=== PATIENT | female | born 1965 | race Two or more races ===

== ENCOUNTER 2018-06-02 21:12 | Emergency (ER) | payer BC ==
[~2018-06-02] VITALS: Ht 160 cm; Wt 95.3 kg
[~2018-06-02 21:12] MED LIST: ARIP30TA3 PO; LAMO200T PO; LEVO150T8 PO; LITH600C PO; PROP60CA2 PO; TOPI100T38 PO; TRIH2TAB3 PO
[2018-06-02] MEDS ORDERED: KETOROLAC TROMETHAMINE INJ 30 MG/ML VIAL IV ONE (22:30)
[2018-06-02] MEDS ORDERED: ONDANSETRON HCL/PF 4 MG/2 ML VIAL IVP ONE (22:30)
[2018-06-02] MEDS: METOCLOPRAMIDE HCL 10 MG/2 ML VIAL IV ONE (22:30)
[2018-06-02] MEDS ORDERED: IV NS 0.9% 1,000 ML BAG IV ONE (22:30)
--- NOTE | 2018-06-02 22:30 | NUR ---
Pt BIBSELF FROM HOME C/O NONRADIATING EPIGASTRIC PAIN FOR THE PAST 2HRS. WENT TO URGENT CARE, BUT WAS TOLD TO COME TO ER INSTEAD. Pt IS C/O NAUSEA & VOMITTING AT HOME, BUT DENIES HAVING DIARRHEA. C/O BEING LIGHTHEADED AND DIZZY, DENIES -CP & -SOB. Pt ALREADY SEEN BY MD AT BEDSIDE. WILL CARRY OUT MD ORDERS.
[2018-06-02 22:47] LABS: BASOPHILS % (AUTO) 0.3 % (0.0-2.0); EOSINOPHILS % (AUTO) 2.1 % (0.0-6.0); HEMATOCRIT 43 % (33-45); HEMOGLOBIN 14.2 g/dL (11.5-14.8); LYMPHOCYTES # (AUTO) 2.5 /CMM (0.8-4.8); LYMPHOCYTES % (AUTO) 19.7 % (20.0-44.0); MEAN CORPUSCULAR HGB CONC 34 g/dl (31.0-36.0); MEAN CORPUSCULAR VOLUME 84 fL (82-100); MONOCYTES # (AUTO) 0.8 /CMM (0.1-1.30); NEUTROPHILS # (AUTO) 9.1 /CMM (1.8-8.9); NEUTROPHILS % (AUTO) 71.9 % (43.0-81.0); PLATELET COUNT (AUTO) 291 /CMM (150-450); RED BLOOD CELL COUNT(AUTO) 5.05 MIL/uL (4.0-5.2); WHITE BLOOD COUNT (AUTO) 12.7 K/uL (4.3-11.0)
[2018-06-02] MEDS ORDERED: KETOROLAC TROMETHAMINE 15 MG/ML VIAL ONE (22:51)
[2018-06-02] MEDS ORDERED: ONDANSETRON HCL/PF 4 MG/2 ML VIAL ONE (22:51)
[2018-06-02] MEDS ORDERED: METOCLOPRAMIDE HCL 10 MG/2 ML VIAL ONE (22:51)
[2018-06-02 22:56] LABS: CALCIUM, SERUM 9.6 mg/dL (8.5-10.1)
--- NOTE | 2018-06-02 22:59 | NUR ---
XR BEING DONE AT BEDSIDE
--- NOTE | 2018-06-02 23:00 | NUR ---
IV ACCESS STARTED ON LHAND #20G
--- NOTE | 2018-06-02 23:06 | NUR ---
ZOFRAN 4MG GIVEN IVP ON LHAND #20G
--- NOTE | 2018-06-02 23:07 | NUR ---
Pt BEING TAKEN FOR CT SCAN VIA WHEELCHAIR
--- NOTE | 2018-06-02 23:08 | NUR ---
PER Pt REQUEST WANTS THE PAIN MED AFTER SHE RETURNS FROM HER CT SCAN. WILL ADMINISTER ONCE SHE RETURNS TO THE ROOM.
[2018-06-02 23:11] LABS: BILIRUBIN,DIRECT 0.1 mg/dL (0.0-0.2); BILIRUBIN,TOTAL 0.5 mg/dL (0.2-1.0); TOTAL PROTEIN, SERUM 7.4 g/dL (6.4-8.2)
--- NOTE | 2018-06-02 23:45 | NUR ---
Pt refused reglan. said the zofran is working fine right now.
--- NOTE | 2018-06-02 23:45 | NUR ---
urine collected. sent with lab.
[2018-06-02 23:46] LABS: APPEARANCE,URINE CLEAR (CLEAR); BILIRUBIN,URINE NEGATIVE (NEGATIVE); BLOOD, URINE TRACE Ery/uL (NEGATIVE); COLOR,URINE YELLOW (YELLOW); KETONES,URINE NEGATIVE (NEGATIVE); LEUKOCYTE ESTERASE ,URINE TRACE (NEGATIVE); NITRITE, URINE NEGATIVE (NEGATIVE); PROTEIN,URINE NEGATIVE (NEGATIVE); UGLUCOSE NEGATIVE (NEGATIVE); UROBILINOGEN,URINE 0.2 EU/dL (0.2)
--- NOTE | 2018-06-02 23:46 | NUR ---
pt is requesting to hold off on taking toradol at this time, but said if her pain comes back she will notify us, and will agree to take the toradol then.
[2018-06-02 23:51] LABS: BACTERIA,URINE None seen /HPF (None Seen); SQUAMOUS EPITHELIAL CELL,UR Few /HPF (None Seen); WBC,URINE 0-2 /HPF (0-3)
--- NOTE | 2018-06-03 00:11 | NUR ---
pt is now c/o acid reflux accompanied with epigastric pain again. pt is requesting for the toradol now. undid reglan and was able to administer to pt. Reglan 10mg and Toradol 15mg administered on L hand IVP.
--- NOTE | 2018-06-03 00:52 | NUR ---
provided excuse from work for pt until 06/05/18
--- NOTE | 2018-06-03 01:14 | NUR ---
Patient discharged to home in stable condition. Written and verbal after care instructions given. Patient verbalizes understanding of instruction. Pt left facility on foot with steady gait. No s/s of acute distress or sob noted. VS stable. Pt's friend at bedside will be driving pt back home. IV access on Lhand removed, secured with gauze and tape. No signs of bleeding noted.
[2018-06-03 01:16] VITALS: BP 112/60
== END 2018-06-03 01:17 | disposition home or self-care (01) ==
LOC: ER 21:12
DX: R10.13 Epigastric pain (principal); R11.2 Nausea with vomiting, unspecified; E03.9 Hypothyroidism, unspecified; F31.9 Bipolar disorder, unspecified; E66.9 Obesity, unspecified; R00.1 Bradycardia, unspecified
CPT/HCPCS: 36415; 71045; 74176; 80048; 80076; 81001; 83690; 84443; 85025; 85730; 93005; 96361; 96374; 96375; 99284; A4606; J1885; J2405; J2765; J7030; Z7610; 81000-TC

== ENCOUNTER 2019-06-09 14:53 | Emergency (ER) | payer BC, OTHER ==
[~2019-06-09] VITALS: Ht 160 cm; Wt 122.5 kg
[~2019-06-09 14:53] MED LIST changes: -LAMO200T PO; +LAMO200T10 PO
[2019-06-09 15:06] VITALS: BP 126/69
--- NOTE | 2019-06-09 16:20 | NUR ---
PT LEFT W/OUT BEING SEEN BY ERMD.
== END 2019-06-09 16:21 | disposition left against medical advice (07) ==
LOC: ER 15:00
DX: Z53.21 Procedure and treatment not carried out due to patient leaving prior to being seen by health care provider (principal); R10.2 Pelvic and perineal pain; F31.9 Bipolar disorder, unspecified

== ENCOUNTER 2019-10-03 08:52 | Inpatient (IN) | payer OTHER ==
[~2019-10-03] VITALS: Ht 160 cm; Wt 99.8 kg
--- NOTE | 2019-10-03 08:58 | NUR ---
bibra88, from home, sent by psych MD for eval, per emt patient "randomly texting her psych MD, not making sense", off psych meds for few days, patient states "i'm confused with everything that is happening roght now". to er bed 10, hooked to monitor, changed to hosp gown, warm blanket provided, awaiting md landin.
[2019-10-03 09:35] LABS: BASOPHILS # (AUTO) 0.1 /CMM (0.0-0.2); BASOPHILS % (AUTO) 0.7 % (0.0-2.0); EOSINOPHILS % (AUTO) 1.5 % (0.0-6.0); HEMATOCRIT 47 % (33-45); HEMOGLOBIN 15.9 g/dL (11.5-14.8); LYMPHOCYTES # (AUTO) 2.2 /CMM (0.8-4.8); LYMPHOCYTES % (AUTO) 21.7 % (20.0-44.0); MEAN CORPUSCULAR HGB CONC 34 g/dl (31.0-36.0); MEAN CORPUSCULAR VOLUME 84 fL (82-100); MONOCYTES # (AUTO) 0.6 /CMM (0.1-1.30); MONOCYTES % (AUTO) 5.9 % (2.0-12.0); NEUTROPHILS # (AUTO) 7.2 /CMM (1.8-8.9); NEUTROPHILS % (AUTO) 70.2 % (43.0-81.0); PLATELET COUNT (AUTO) 284 /CMM (150-450); RED BLOOD CELL COUNT(AUTO) 5.63 MIL/uL (4.0-5.2); WHITE BLOOD COUNT (AUTO) 10.2 K/uL (4.3-11.0)
[2019-10-03 09:36] LABS: APPEARANCE,URINE Slightly Cloudy (CLEAR); BILIRUBIN,URINE Negative (NEGATIVE); BLOOD, URINE Negative Ery/uL (NEGATIVE); COLOR,URINE Yellow (YELLOW); KETONES,URINE Negative (NEGATIVE); LEUKOCYTE ESTERASE ,URINE Small (NEGATIVE); NITRITE, URINE Negative (NEGATIVE); PH,URINE 5.5 (5.0-8.0); PROTEIN,URINE Negative (NEGATIVE); UGLUCOSE Negative (NEGATIVE); UROBILINOGEN,URINE 0.2 EU/dL (0.2)
[2019-10-03 09:45] LABS: CALCIUM, SERUM 9.4 mg/dL (8.5-10.1); CARBON DIOXIDE 27 mmol/L (21-32); CHLORIDE 104 mmol/L (98-107); GLUCOSE 133 mg/dL (74-106); POTASSIUM 3.5 mmol/L (3.5-5.1); SODIUM SERUM 141 mmol/L (136-145); UREA NITROGEN, BLOOD 13 mg/dL (7-18)
[2019-10-03 09:46] LABS: BACTERIA,URINE Moderate /HPF (None Seen); RBC,URINE 0-2 /HPF (0-2); SQUAMOUS EPITHELIAL CELL,UR Moderate /HPF (None Seen)
[2019-10-03 09:58] LABS: ALANINE AMINOTRANSFERASE 50 U/L (12-78); ALBUMIN 4.3 g/dL (3.4-5.0); ALKALINE PHOSPHATASE 109 U/L (46-116); ASPARTATE AMINOTRANSFERASE 27 U/L (15-37); BILIRUBIN,DIRECT 0.3 mg/dL (0.0-0.2); BILIRUBIN,TOTAL 1.3 mg/dL (0.2-1.0); TOTAL PROTEIN, SERUM 8.1 g/dL (6.4-8.2)
[2019-10-03 09:59] LABS: ACETAMINOPHEN < 2 ug/ml (10-30); ALCOHOL, BLOOD < 3 mg/dL (0-0); SALICYLATE < 0.2 mg/dL (2.8-20.0)
[2019-10-03] MEDS ORDERED: LEVO125T8 PO (10:02)
[2019-10-03] MEDS ORDERED: VITA1TAB56 PO (10:02)
[2019-10-03] MEDS ORDERED: LACT1CAP71 PO (10:02)
[2019-10-03] MEDS ORDERED: CITA20TA16 PO (10:02)
[2019-10-03] MEDS ORDERED: CEPHALEXIN MONOHYDRATE 500 MG CAPSULE PO ONE ×2 (10:37→11:00)
--- NOTE | 2019-10-03 10:38 | NUR ---
PATIENT MEDICALLY CLEARED PER MD, WILL CONTACT CABINET ABRASIVE SANDBLASTER FOR EVAL
--- NOTE | 2019-10-03 10:40 | NUR ---
CALLED [facility] FOR PSYCH EVAL. ART WILL BE HERE WITHIN THE HOUR.
--- NOTE | 2019-10-03 11:38 | NUR ---
PATIENT IN BED AWAKE, HOOKED TO MONITOR, WILL CONTINUE TO MONITOR ACCORDINGLY. KEPT SAFE AND COMFORTABLE.
--- NOTE | 2019-10-03 11:57 | NUR ---
CLOUD ARCHITECT ART AT BEDSIDE
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
--- NOTE | 2019-10-03 15:48 | NUR ---
REPORT GIVEN TO MS SAEZ OF [employer]
[2019-10-03 16:50] VITALS: BP 145/77
[2019-10-03] MEDS ORDERED: MAGNESIUM HYDROXIDE 30 ML UDC PO PRN (17:00)
[2019-10-03] MEDS ORDERED: BLOOD SUGAR DIAGNOSTIC 1 EACH STRIP IN ONE (17:00)
--- NOTE | 2019-10-03 18:11 | NUR ---
GPS/RN-NOTES ADMITTED 53 YEARS OLD FEMALE PATIENT FROM [facility] ER. PER REPORT PATIENT WAS FROM HOME. UPON FACE TO FACE ASSESSMENT PATIENT IS ALERT ORIENTED X3 AMBULATORY STEADY GAIT.PATIENT IS DISHEVELED AND DISORGANIZED. PATIENT ON 72 HOLD FOR GD ADULT AND WAS VERIFIED WITH THE PATIENT, STATED" THIS IS PSYCHE ,WHO PUT ME IN THE HOSPITAL" . ADVISEMENT AND PATIENT'S RIGHT GIVEN TO HER. DR. VALDOVINOS ( PSYCHIATRIST) MADE AWARE OF THE ADMISSION WITH ORDERS.NIGEL LUTHER ( BLUE LINE TRIMMER) ALSO MADE AWARE AND TO RECONCILE MEDICATIONS. PATIENT'S SON TERE ) MADE AWARE OF THE ADMISSION. PATIENT WAS ORIENTED IN THE UNIT AND UNIT POLICIES. FULL BODY ASSESSMENT AND CONTRABAND DONE. WILL ENDORSE TO INCOMING NURSE FOR CONTINUITY OF CARE.
[2019-10-03 20:52] VITALS: BP 128/65
[2019-10-04 07:36] LABS: ALBUMIN 3.7 g/dL (3.4-5.0); BILIRUBIN,TOTAL 1.1 mg/dL (0.2-1.0); CALCIUM, SERUM 8.8 mg/dL (8.5-10.1); CREATININE 0.7 mg/dL (0.6-1.3); TOTAL PROTEIN, SERUM 7.2 g/dL (6.4-8.2)
[2019-10-04 08:00] VITALS: BP 146/80
[2019-10-04] MEDS: LEVOTHYROXINE SODIUM 125 MCG TABLET PO SCH (08:20)
[2019-10-04] MEDS: VITAMIN B COMP W-C 1 TAB TABLET PO SCH (08:20)
[2019-10-04] MEDS: LACTOBACILLUS RHAMNOSUS GG 1 EACH CAP.SPRINK PO SCH (08:20)
[2019-10-04] MEDS: CEPHALEXIN MONOHYDRATE 500 MG CAPSULE PO SCH ×2 (09:41→21:17)
[2019-10-04] MEDS ORDERED: VENLAFAXINE XR 75 MG CAP.SR.24H PO SCH (10:30)
[2019-10-04] MEDS: LORAZEPAM 0.5 MG TABLET PO PRN ×2 (11:09→18:57)
[2019-10-04] MEDS: ARIPIPRAZOLE 2 MG TABLET PO SCH ×2 (11:09→17:08)
--- NOTE | 2019-10-04 11:09 | NUR ---
RN NOTE: PT HYPERVENTILATING, ANXIOUS AND AGITATED. RUMINATING RE: STATED TREATMENT FROM . UNABLE TO IMPLEMENT COPING SKILLS. MEDICATED WITH ATIVAN 0.5 MG PO FOR ANXIETY AND AGITATION.
[2019-10-04] MEDS: MAG HYDROX/AL HYDROX/SIMETH 30 ML UDC PO PRN ×2 (11:49→17:09)
[2019-10-04 16:00] VITALS: BP 130/77
--- NOTE | 2019-10-04 17:09 | NUR ---
RN NOTE: PT C/O ABDOMINAL PAIN. MEDICATED WITH MAALOX PO PRN.
--- NOTE | 2019-10-04 18:57 | NUR ---
RN NOTE: PT EXHIBITING INCREASED ANXIETY AND AGITATION. UNABLE TO BE REDIRECTED. MEDICATED WITH ATIVAN 0.5 MG PO
[2019-10-04 20:00] VITALS: BP 127/73
[2019-10-04] MEDS: MIRTAZAPINE 15 MG TABLET PO SCH (20:14)
--- NOTE | 2019-10-05 06:35 | NUR ---
GPS RN NOTE: WHILE MAKING ROUNDS, PT. INTERMITTENTLY SHAKING HEAD WHEN ASKED QUESTIONS. PT. RESPONDING BY NODDING HEAD. V/S TAKEN AND RECORDED BP: 137/87 HR: 85 RR:17 O2 SAT: 96% ON RA T: 97.0. SAFETY PRECAUTIONS IMPLEMENTED. 0640: RECHECKED PT AND IS SLEEPING AT THE MOMENT. NO SHAKING OF HEAD NOTED. WILL CONTINUE TO MONITOR.
[2019-10-05 08:00] VITALS: BP 129/82
[2019-10-05] MEDS: LACTOBACILLUS RHAMNOSUS GG 1 EACH CAP.SPRINK PO SCH (08:26)
[2019-10-05] MEDS: ARIPIPRAZOLE 2 MG TABLET PO SCH ×2 (08:26→16:34)
[2019-10-05] MEDS: VITAMIN B COMP W-C 1 TAB TABLET PO SCH (08:26)
[2019-10-05] MEDS: CEPHALEXIN MONOHYDRATE 500 MG CAPSULE PO SCH ×2 (08:26→21:12)
[2019-10-05] MEDS: LEVOTHYROXINE SODIUM 125 MCG TABLET PO SCH (08:26)
[2019-10-05] MEDS: LORAZEPAM 0.5 MG TABLET PO PRN ×3 (12:20→18:18)
[2019-10-05] MEDS: VENLAFAXINE XR 75 MG CAP.SR.24H PO SCH (12:20)
--- NOTE | 2019-10-05 12:20 | NUR ---
RN NOTE: PT EXHIBITING INCREASED AGITATION AND ANXIETY. PT REQUESTING ATIVAN. ATIVAN PO PRN GIVEN.
[2019-10-05 16:00] VITALS: BP 148/70
--- NOTE | 2019-10-05 17:52 | NUR ---
RN NOTE: AGGRESSION PT CAME OUT OF ROOM, YELLING, SCREAMING, POSTURING TOWARD NURSING STAFF. PT YELLING ABOUT HER RIGHTS AND INFORMATION GOING TO . PT CONT TO WALK IN AND OUT OF ROOM, YELLING AND POSTURING. PT IS UNABLE TO BE REDIRECTED. ATTEMPTED TO GIVE ATIVAN 0.5 MG. PT REFUSED AT PRESENT TIME. AFTER 5 TRIPS IN AND OUT OF ROOM, PT CONT TO REFUSE ATIVAN AND STORMED INTO ROOM. WILL CONT TO MONITOR
--- NOTE | 2019-10-05 18:18 | NUR ---
RN NOTE: WITH ENCOURAGEMENT PT TOOK PO ATIVAN 0.5 MG PO
[2019-10-05] MEDS: MIRTAZAPINE 15 MG TABLET PO SCH (19:54)
[2019-10-05 20:53] VITALS: BP 141/66
[2019-10-06] MEDS: LEVOTHYROXINE SODIUM 125 MCG TABLET PO SCH (07:28)
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
[2019-10-06] MEDS: LORAZEPAM 0.5 MG TABLET PO PRN (07:56)
--- NOTE | 2019-10-06 07:59 | NUR ---
RN NOTE- ANXIETY/ PT ANXIOUS ATIVAN 0.5 MG GIVEN
[2019-10-06 08:00] VITALS: BP 145/77
[2019-10-06] MEDS: VENLAFAXINE XR 75 MG CAP.SR.24H PO SCH (08:16)
[2019-10-06] MEDS: VITAMIN B COMP W-C 1 TAB TABLET PO SCH (08:16)
[2019-10-06] MEDS: LACTOBACILLUS RHAMNOSUS GG 1 EACH CAP.SPRINK PO SCH (08:16)
[2019-10-06] MEDS: CEPHALEXIN MONOHYDRATE 500 MG CAPSULE PO SCH ×2 (08:16→20:58)
[2019-10-06] MEDS: ARIPIPRAZOLE 2 MG TABLET PO SCH (08:16)
--- NOTE | 2019-10-06 08:55 | NUR ---
UR NOTE: Auth: [email or web address] Approval Days: 6 - Review due on 10/08/2019 Please call [phone]
--- NOTE | 2019-10-06 09:00 | NUR ---
RN NOTE- PT FELL OUTSIDE OF BR THIS MORNING. WET FLOOR JUST MOPPED. SLID TO GROUND SITTING POSITION. NO INJURY SKIN INTACT NO LOC VS STABLE EXAM DONE HAMPER MAKER AND PSYCHIATRIST NOTIFIED. ASSISTED TO BED, ANXIOUS. ATIVAN 0.5 MG GIVEN. WILL CONTINUER TO MONITOR FOR SAFETY AND CHANGES
--- NOTE | 2019-10-06 10:08 | NUR ---
FAMILY CONTACT: SW contacted pts sister Ryanne ([phone]) for correct contact information for pts .
--- NOTE | 2019-10-06 10:09 | NUR ---
FAMILY CONTACT: SW contacted pts Jorge ([phone]) for collateral information and discharge/ treatment planning. Pts stated he did not want to provide SW with information for fear of "getting in trouble." SW stated that all information provided is confidential and stated he rather not provide any information to SW at this time. SW honored his wishes and informed him pts insurance has authorized 6 days with review due on Sunday10/08/19. SW also informed him that pt is currently on a leida-chair due to pt pretending to fall twice this morning. SW stated that due to safety pt has been placed on a chair. understood and stated to provided him with updates at needed. also confirmed that pt is able to return back home once stable for discharge.
--- NOTE | 2019-10-06 10:47 | NUR ---
INITIAL DISCHARGE PLAN: Pt wishes to return home [address] [place] [address]. SW confirmed with pts Jorge [phone] who states it is safe for pt to return home once stable for discharge. JIGNA will help form a safe and proper discharge in collaboration with .
[2019-10-06] MEDS: ARIPIPRAZOLE 5 MG TABLET PO SCH ×2 (14:02→16:26)
--- NOTE | 2019-10-06 14:38 | NUR ---
Individual Counseling: This SW met with pt. at bedside to facilitate therapeutic milieu regarding support systems. However, the pt. was not suitable for therapeutic milieu as the presented anxious, and unable to engage in meaningful conversation. Patient will be invited to participate in future counseling session.
[2019-10-06 16:00] VITALS: BP 148/84
--- NOTE | 2019-10-06 18:16 | NUR ---
RN NOTE- C/O CONSTIPATION. LAST BM YESTERDAY MORNING. MILK OF MAGNESIA 30 CC GIVEN
[2019-10-06 20:18] VITALS: BP 137/68
[2019-10-06] MEDS: TEMAZEPAM 7.5 MG CAPSULE PO PRN (21:27)
--- NOTE | 2019-10-06 21:28 | NUR ---
GPS-RN NOTE: INSOMNIA PATIENT C/O INABILITY TO SLEEP. ADMINISTERED RESTORIL 7.5MG PO ORDERED. WILL CONTINUE TO MONITOR FOR PATIENT'S SAFETY.
--- NOTE | 2019-10-07 06:10 | NUR ---
GPS-RN NOTE: PATIENT IS ALERT AND ORIENTED X3, NO ACUTE DISTRESS NOTED. PATIENT IS ARGUMENTATIVE, DEMANDING, ATTENTION SEEKER, REDIRECTABLE. SET LIMITS PROVIDED. SAFETY PRECAUTIONS IMPLEMENTED. WILL CONTINUE TO MONITOR FOR PATIENT'S SAFETY.
[2019-10-07 08:00] VITALS: BP 143/80
[2019-10-07] MEDS: LEVOTHYROXINE SODIUM 125 MCG TABLET PO SCH (08:34)
[2019-10-07] MEDS: VITAMIN B COMP W-C 1 TAB TABLET PO SCH (08:34)
[2019-10-07] MEDS: LACTOBACILLUS RHAMNOSUS GG 1 EACH CAP.SPRINK PO SCH (08:34)
[2019-10-07] MEDS: CEPHALEXIN MONOHYDRATE 500 MG CAPSULE PO SCH ×2 (08:34→22:19)
[2019-10-07] MEDS: ARIPIPRAZOLE 5 MG TABLET PO SCH (08:34)
--- NOTE | 2019-10-07 08:57 | NUR ---
GPS-RN NOTE: PATIENT RESTING IN BED AMBULATORY WITH THE WALKER PT DELUSIONAL, DEMANDING ARGUMENTATIVE, COMPLIANT WITH MEDICATIONS. ALERT AND ORIENTED X3,ALL NEEDS MET,PT DENIES SI/HI .SAFETY PRECAUTIONS IMPLEMENTED. WILL CONTINUE TO MONITOR FOR PATIENT'S SAFETY.
[2019-10-07] MEDS: LORAZEPAM 0.5 MG TABLET PO PRN (10:46)
--- NOTE | 2019-10-07 10:49 | NUR ---
GPS-RN NOTE: PATIENT CRYING YELLING DELUSIONAL, COMPLAINING OF HER ATIVAN 0.5 MG PO PRN GIVEN SAFETY PRECAUTIONS IMPLEMENTED. WILL CONTINUE TO MONITOR FOR PATIENT'S SAFETY.
--- NOTE | 2019-10-07 14:14 | NUR ---
AND JIGNA NOTE: JIGNA and met with pt to discuss pts discharge plan and treatment. Pt agreed to take a higher dose of antipsychotic medication. MD also informed pt that she was being for bipolar disorder and explained her symptoms in combination with the medication. Pt appears to have a better understanding and insight into her mental illness. agreed to discharge pt tomorrow back home. SW stated that she would coordinate her discharge with her and pt agreed.
--- NOTE | 2019-10-07 14:32 | NUR ---
FAMILY CONTACT: JIGNA contacted pts Jorge ([phone]) to inform him pt is being discharged tomorrow Sunday10/08/19. stated he will pick pt up at 1:00pm.
[2019-10-07 16:00] VITALS: BP 128/76
--- NOTE | 2019-10-07 18:02 | NUR ---
GPS RN NOTE: PT ARGUMENTATIVE REFUSING TO GIVE DIRTY GOWNS SHE HAS 2 DIRTY GOWNS WITH HER PLUS TWO SHE IS WEARING IT, EXPLAIN THAT GOWNS TO BE WASHED AND ANY TIME SHE NEED NEW ONES WE CAN PROVIDED, CN TALK AND EXPLAIN TO PT . PATIENT CONTINUE REFUSING HYPERVERBAL, ARGUMENTATIVE, ANGRY.
[2019-10-07] MEDS ORDERED: ARIPIPRAZOLE 5 MG TABLET PO SCH (20:00)
[2019-10-07 20:52] VITALS: BP 140/74
[2019-10-07] MEDS: TEMAZEPAM 7.5 MG CAPSULE PO PRN (22:18)
[2019-10-08 08:00] VITALS: BP 116/82
[2019-10-08] MEDS: LACTOBACILLUS RHAMNOSUS GG 1 EACH CAP.SPRINK PO SCH (08:43)
[2019-10-08] MEDS: LEVOTHYROXINE SODIUM 125 MCG TABLET PO SCH (08:43)
[2019-10-08] MEDS: CEPHALEXIN MONOHYDRATE 500 MG CAPSULE PO SCH ×2 (08:43→21:33)
[2019-10-08] MEDS: VITAMIN B COMP W-C 1 TAB TABLET PO SCH (08:43)
[2019-10-08] MEDS: ARIPIPRAZOLE 5 MG TABLET PO SCH ×3 (08:43→21:33)
--- NOTE | 2019-10-08 10:18 | NUR ---
DISCHARGE NOTE: Pt will be discharged at 1:00pm via private vehicle home [address] [place] [address]. Pts Jorge [phone] has been notified and will be picking pt up and transporting home. Pts mood is euthymic with congruent affect. Pt denied visual/auditory hallucinations and denied suicidal/homicidal ideation. Pt will follow up with Psychiatrist: Dr. Lionel Stanley Address: [address], [place] [address] on Sunday10/10/19 telephonically at 10:00am. JIGNA faxed clinical information to . Pt will also follow up with Used Car Renovator: [facility] Address: [address] [place] [address] . The multidisciplinary exit care form was done, printed, signed, and given to the patient. Addendum: 10/08/19 at 1224 by LUISA BENITO Pts discharge has been cancelled by due to pt becoming catatonic at the time of discharge. Pt sat and the floor and refused to get up, pt was placed on a leida-chair. JIGNA contacted Pts Jorge [phone] to inform him.
--- NOTE | 2019-10-08 12:20 | NUR ---
GPS/RN-NOTES CERTIFIED FRAUD EXAMINER STAFF WITNESS PATIENT PURPOSELY SITTING AND LAYING ON THE FLOOR,NOT MOVING AND TALKING, UPON ASSESSMENT PATIENT LAYING ON HER BACK IN THE HALLWAY NEXT TO HER ROOM,NOT TALKING AND MOVING. EMERGENCY DOCTOR AND OTHER STAFF HELP PATIENT UP IN THE CHAIR AND BROUGHT TO THE DAY ROOM.NO ACUTE DISTRESS NOTED. DR. VALDOVINOS MADE AWARE OF PATIENT BEHAVIOR WITH T.O ORDER TO CANCEL THE DISCHARGE TODAY ALSO ORDERED ABILIFY 5MG P.O Q1300. NOTED AND CARRIED OUT. PATIENT'S TIFFANI ([phone]) MADE AWARE OF THE DISCHARGE CANCELATION.
--- NOTE | 2019-10-08 12:32 | NUR ---
UR NOTE: Auth: [email or web address] SW called [facility] DASHAWN Chapman ([phone] ex: [phone]) and conducted a live review via voicemail.
[2019-10-08 20:45] VITALS: BP 163/71
[2019-10-08] MEDS: TEMAZEPAM 7.5 MG CAPSULE PO PRN (23:52)
--- NOTE | 2019-10-09 01:20 | NUR ---
Patient is alert and oriented x3. Pleasant and calm. Able to hold discussion for 20 minutes. Concerned about family issues and especially relationship with the . Compliant with medication. Thought process linear. Remote and recent memory intact. Restoril 7.5 mg PRN given for insomnia. Not effective at this time. Will continue to monitor behavior and medication effectiveness
[2019-10-09] MEDS: LORAZEPAM 0.5 MG TABLET PO PRN ×2 (01:44→16:09)
[2019-10-09 08:00] VITALS: BP 148/66
--- NOTE | 2019-10-09 08:29 | NUR ---
UR NOTE: Auth: [email or web address] SW called [facility] DASHAWN Chapman ([phone] ex: [phone]) and conducted a live review via voicemail.
[2019-10-09] MEDS: LEVOTHYROXINE SODIUM 125 MCG TABLET PO SCH (10:01)
[2019-10-09] MEDS: LACTOBACILLUS RHAMNOSUS GG 1 EACH CAP.SPRINK PO SCH (10:01)
[2019-10-09] MEDS: CEPHALEXIN MONOHYDRATE 500 MG CAPSULE PO SCH (10:01)
[2019-10-09] MEDS: ARIPIPRAZOLE 5 MG TABLET PO SCH ×3 (10:01→20:00)
[2019-10-09] MEDS: VITAMIN B COMP W-C 1 TAB TABLET PO SCH (10:01)
--- NOTE | 2019-10-09 11:47 | NUR ---
UR NOTE: SW received a call from [facility] Mireya Chapman ([phone] ex: [phone]) stating that pt has been covered for one day 10/09/19 (Auth#: [email or web address]) and is requesting SW call tomorrow for a clinical review that consists of, current Dx, tox screen, reason for admission, biopsychosocial stressors, and any medical diagnosis.
[2019-10-09] MEDS: DIVALPROEX SODIUM 125 MG CAP.SPRINK PO SCH ×2 (12:48→16:55)
--- NOTE | 2019-10-09 12:48 | NUR ---
GPS RN NOTE: MED REFUSAL PATIENT REFUSED DEPAKOTE SPRINKLE. PATIENT STATED SHE DOES NOT TRUST HER PSYCHIATRIST AND DUE TO FEELING THE RELATIONSHIP WITH PSYCHIATRIST IS NOT RIGHT SHE WILL NOT TAKE ANY NEW MEDICATION PRESCRIBED BY DR VALDOVINOS. SHE IS REQUESTING NEW PSYCHIATRIST
[2019-10-09] MEDS ORDERED: DIVALPROEX SODIUM 125 MG CAP.SPRINK PO SCH (13:00)
--- NOTE | 2019-10-09 14:27 | NUR ---
INDIVIDUAL COUNSELING: SW met with pt to discuss pts discharge plan. Pt is preoccupied with her diagnosis, pt was questioning why the MD has diagnosed her with Bipolar Disorder. Pt then began to ask if the psychiatrist is and employee of the hospital. Pt appears paranoid. Pts thought process is disorganized and she is unable to gather her thoughts. Pt is not appropriate for individual therapy at this time.
[2019-10-09 16:00] VITALS: BP 118/66
--- NOTE | 2019-10-09 16:56 | NUR ---
GPS RN NOTE: MED REFUSAL PATIENT CONTINUES TO REFUSE NEW PRESCRIPTION OF DEPAKOTE. STATED THAT SHE HAS "STABLE MOOD, BUT TODAY SHE WAS KITCHEN" AND "WOULD LIKE TO BE REEVALUATED IN A DAY OR TWO AND IF DR VALDOVINOS FEELS I HAVE UNSTABLE MOOD STILL THEN I WILL TAKE IT"
[2019-10-09 20:35] VITALS: BP 126/63
--- NOTE | 2019-10-09 23:13 | NUR ---
GPS RN NOTES: RECEIVED PT LAYING IN BED, AWAKE, ALERT AND ORIENTED X2-3. FLAT AFFECT, APPEARS DEPRESSED, LABILE, UNCOOPERATIVE, REFUSED PM MEDS ABILIFY 5MG 3 TABS/15MG. PER PT "I WANT TO CHOOSE MY OWN DOCTOR, I DON'T KNOW HIM", REFERRING TO DR VALDOVINOS. NO S/S OF ANY DISTRESS. RESPIRATION EVEN AND UNLABORED WITH EQUAL RISE AND FALL OF THE CHEST, ON ROOM AIR. PT DENIES SI AT THIS TIME. OFFERED FLUID AND SNACK TOLERATED. SAFETY AND FALL PRECAUTION OBSERVED, CALL CHOWDARY WITHIN REACH. Q15 MINUTES OBSERVATION CONTINUED. WILL CONTINUE TO MONITOR PT FOR MOOD, SAFETY AND BEHAVIOR.
[2019-10-10 08:00] VITALS: BP 131/75
[2019-10-10] MEDS: LACTOBACILLUS RHAMNOSUS GG 1 EACH CAP.SPRINK PO SCH (08:30)
[2019-10-10] MEDS: VITAMIN B COMP W-C 1 TAB TABLET PO SCH (08:30)
[2019-10-10] MEDS: DIVALPROEX SODIUM 125 MG CAP.SPRINK PO SCH ×3 (08:30→16:50)
[2019-10-10] MEDS: ARIPIPRAZOLE 5 MG TABLET PO SCH (08:30)
[2019-10-10] MEDS: LEVOTHYROXINE SODIUM 125 MCG TABLET PO SCH (08:30)
--- NOTE | 2019-10-10 11:04 | NUR ---
UR Note: SW called [facility] Mireya Chapman ([phone] ex: [phone]) and left a detailed clinical on her voicemail requesting additional days of authorization.
[2019-10-10] MEDS: BENZTROPINE MESYLATE (1 MG) 1 MG TABLET PO SCH ×2 (13:00→16:50)
[2019-10-10] MEDS: risperiDONE 1 MG TABLET PO SCH ×2 (13:00→16:50)
--- NOTE | 2019-10-10 14:00 | NUR ---
GPS/RN pt refused 1300 meds offered x3
[2019-10-10] MEDS: LORAZEPAM 0.5 MG TABLET PO PRN (15:21)
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
[2019-10-10 20:00] VITALS: BP 124/67
[2019-10-10 20:15] VITALS: BP 124/67
[2019-10-11] MEDS: LORAZEPAM 0.5 MG TABLET PO PRN ×2 (05:43→18:05)
[2019-10-11] MEDS: ACETAMINOPHEN 325 MG TABLET PO PRN (06:40)
[2019-10-11 08:00] VITALS: BP 140/71
[2019-10-11] MEDS: VITAMIN B COMP W-C 1 TAB TABLET PO SCH (08:53)
[2019-10-11] MEDS: BENZTROPINE MESYLATE (1 MG) 1 MG TABLET PO SCH ×3 (08:53→16:41)
[2019-10-11] MEDS: risperiDONE 1 MG TABLET PO SCH ×3 (08:53→16:41)
[2019-10-11] MEDS: LACTOBACILLUS RHAMNOSUS GG 1 EACH CAP.SPRINK PO SCH (08:54)
[2019-10-11] MEDS: DIVALPROEX SODIUM 125 MG CAP.SPRINK PO SCH ×2 (08:54→12:39)
[2019-10-11] MEDS: LEVOTHYROXINE SODIUM 125 MCG TABLET PO SCH (08:54)
[2019-10-11 16:00] VITALS: BP 138/75
[2019-10-11] MEDS: DIVALPROEX SODIUM 500 MG TABLET.DR PO SCH (16:41)
[2019-10-11 20:00] VITALS: BP 130/59
[2019-10-12] MEDS: LEVOTHYROXINE SODIUM 125 MCG TABLET PO SCH (07:30)
[2019-10-12 08:00] VITALS: BP 123/75
[2019-10-12] MEDS: DIVALPROEX SODIUM 125 MG CAP.SPRINK PO SCH ×2 (08:42→13:41)
[2019-10-12] MEDS: VITAMIN B COMP W-C 1 TAB TABLET PO SCH (08:42)
[2019-10-12] MEDS: BENZTROPINE MESYLATE (1 MG) 1 MG TABLET PO SCH ×3 (08:42→17:06)
[2019-10-12] MEDS: risperiDONE 1 MG TABLET PO SCH ×3 (08:44→17:05)
[2019-10-12] MEDS: LACTOBACILLUS RHAMNOSUS GG 1 EACH CAP.SPRINK PO SCH (08:44)
[2019-10-12] MEDS: LORAZEPAM 0.5 MG TABLET PO PRN ×2 (10:36→17:05)
--- NOTE | 2019-10-12 10:36 | NUR ---
RN NOTE:PATIENT C/O ANXIETY MEDICATED WITH ATIVAN 0.5MG PO WILL CONTINUE TO MONITOR .
[2019-10-12 16:00] VITALS: BP 127/79
[2019-10-12] MEDS: DIVALPROEX SODIUM 500 MG TABLET.DR PO SCH (17:05)
--- NOTE | 2019-10-12 17:05 | NUR ---
RN NOTE:PATIENT C/O ANXIETY MEDICATED WITH ATIVAN 0.5MG PO WILL CONTINUE TO MONITOR .
[2019-10-12 20:36] VITALS: BP 129/62
[2019-10-13] MEDS: LORAZEPAM 0.5 MG TABLET PO PRN ×2 (05:31→11:18)
--- NOTE | 2019-10-13 05:31 | NUR ---
GPS RN NOTE: ANXIETY PT. C/O ANXIETY AND REQUESTED FOR ATIVAN. ADMINISTERED ATIVAN 0.5 MG PO PRN ORDERED. WILL CONTINUE TO MONITOR FOR SAFETY AND BEHAVIOR
[2019-10-13] MEDS: LEVOTHYROXINE SODIUM 125 MCG TABLET PO SCH (07:30)
[2019-10-13 08:00] VITALS: BP 125/69
[2019-10-13] MEDS: risperiDONE 1 MG TABLET PO SCH ×4 (08:00→17:18)
[2019-10-13] MEDS: DIVALPROEX SODIUM 125 MG CAP.SPRINK PO SCH ×2 (08:38→12:32)
[2019-10-13] MEDS: VITAMIN B COMP W-C 1 TAB TABLET PO SCH (08:38)
[2019-10-13] MEDS: BENZTROPINE MESYLATE (1 MG) 1 MG TABLET PO SCH ×4 (08:38→17:18)
[2019-10-13] MEDS: LACTOBACILLUS RHAMNOSUS GG 1 EACH CAP.SPRINK PO SCH (08:38)
--- NOTE | 2019-10-13 11:18 | NUR ---
RN NOTE:PATIENT C/O ANXIETY MEDICATED WITH ATIVAN 0.5MG PO WILL CONTINUE TO MONITOR .
[2019-10-13 16:00] VITALS: BP 144/88
[2019-10-13] MEDS: DIVALPROEX SODIUM 500 MG TABLET.DR PO SCH (17:18)
[2019-10-13 20:46] VITALS: BP 133/79
[2019-10-14 07:52] LABS: BASOPHILS % (AUTO) 0.4 % (0.0-2.0); EOSINOPHILS % (AUTO) 3.1 % (0.0-6.0); HEMATOCRIT 47 % (33-45); HEMOGLOBIN 15.2 g/dL (11.5-14.8); LYMPHOCYTES # (AUTO) 2.1 /CMM (0.8-4.8); LYMPHOCYTES % (AUTO) 27.2 % (20.0-44.0); MEAN CORPUSCULAR HGB CONC 33 g/dl (31.0-36.0); MEAN CORPUSCULAR VOLUME 86 fL (82-100); MONOCYTES # (AUTO) 0.5 /CMM (0.1-1.30); MONOCYTES % (AUTO) 7.1 % (2.0-12.0); NEUTROPHILS # (AUTO) 4.8 /CMM (1.8-8.9); NEUTROPHILS % (AUTO) 62.2 % (43.0-81.0); PLATELET COUNT (AUTO) 232 /CMM (150-450); RED BLOOD CELL COUNT(AUTO) 5.43 MIL/uL (4.0-5.2); WHITE BLOOD COUNT (AUTO) 7.7 K/uL (4.3-11.0)
[2019-10-14 08:00] VITALS: BP 122/73
[2019-10-14] MEDS: risperiDONE 1 MG TABLET PO SCH ×3 (08:00→16:54)
[2019-10-14 08:17] LABS: ALBUMIN 3.9 g/dL (3.4-5.0); BILIRUBIN,TOTAL 0.6 mg/dL (0.2-1.0); CALCIUM, SERUM 9.5 mg/dL (8.5-10.1); CREATININE 0.8 mg/dL (0.6-1.3); POTASSIUM 3.8 mmol/L (3.5-5.1); TOTAL PROTEIN, SERUM 7.9 g/dL (6.4-8.2)
[2019-10-14] MEDS: BENZTROPINE MESYLATE (1 MG) 1 MG TABLET PO SCH ×3 (09:00→16:54)
--- NOTE | 2019-10-14 09:11 | NUR ---
UR NOTE: Auth: [email or web address] SW called [facility] DASHAWN Chapman ([phone] ex: [phone]) and conducted a live review via voicemail.
[2019-10-14] MEDS: VITAMIN B COMP W-C 1 TAB TABLET PO SCH (09:21)
[2019-10-14] MEDS: DIVALPROEX SODIUM 125 MG CAP.SPRINK PO SCH ×2 (09:21→13:01)
[2019-10-14] MEDS: LEVOTHYROXINE SODIUM 125 MCG TABLET PO SCH (09:21)
[2019-10-14] MEDS: LACTOBACILLUS RHAMNOSUS GG 1 EACH CAP.SPRINK PO SCH (09:21)
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
--- NOTE | 2019-10-14 11:27 | NUR ---
FAMILY CONTACT: SW contacted pts sister Ryanne ([phone]) to discuss pts discharge plan and relationship with . Sister states that she agrees with pts discharge back home she states that she has arranged for psychotherapy for pt and and also has been very involved with pts home life and relationship with . Sister states that pts can be called to arrange transportation.
--- NOTE | 2019-10-14 11:31 | NUR ---
FAMILY CONTACT: JIGNA contacted pts Jorge ([phone]) to inform him pt is being discharged tomorrow Sunday10/15/19. stated he will pick pt up at 1:00pm.
--- NOTE | 2019-10-14 14:49 | NUR ---
INDIVIDUAL INTERVENTION: SW met with pt and discussed her paranoia, pt had mentioned to SW that she was not going to leave until she had all of medical records. SW explained the process of requesting medical records and informed her that refusing to leave if she did not have her medical records was not appropriate behavior. SW processed her paranoia and provided reassurance to pt. SW went over pts discharge plan for tomorrow 10/15/19. Pt agreed with discharge plan and states she understood the process for requesting medical records.
[2019-10-14 16:00] VITALS: BP 130/70
[2019-10-14] MEDS: DIVALPROEX SODIUM 500 MG TABLET.DR PO SCH (16:54)
[2019-10-15] MEDS: VITAMIN B COMP W-C 1 TAB TABLET PO SCH (08:15)
[2019-10-15] MEDS: risperiDONE 1 MG TABLET PO SCH ×2 (08:15→12:03)
[2019-10-15] MEDS: LEVOTHYROXINE SODIUM 125 MCG TABLET PO SCH (08:15)
[2019-10-15] MEDS: DIVALPROEX SODIUM 125 MG CAP.SPRINK PO SCH ×2 (08:15→12:03)
[2019-10-15] MEDS: BENZTROPINE MESYLATE (1 MG) 1 MG TABLET PO SCH ×2 (08:15→12:04)
[2019-10-15] MEDS: LACTOBACILLUS RHAMNOSUS GG 1 EACH CAP.SPRINK PO SCH (08:15)
--- NOTE | 2019-10-15 08:18 | NUR ---
UR NOTE: Auth: [email or web address] SW received a voicemail from [facility] Mireya Chapman ([phone] ex: [phone]) stating that pt has been authorized one additional day 10/14/19 with an MD to MD review on 10/15/19. JIGNA called Jennifer director of health care marketing ( ex: [phone]) to inform her pt is discharging on this present day.
[2019-10-15] MEDS: ACETAMINOPHEN 325 MG TABLET PO PRN (09:44)
--- NOTE | 2019-10-15 10:15 | NUR ---
DISCHARGE NOTE: Pt will be discharged at 1:00pm via private vehicle home [address] [place] [address]. Pts Jorge [phone] has been notified and will be picking pt up and transporting home. Pts mood is euthymic with congruent affect. Pt denied visual/auditory hallucinations and denied suicidal/homicidal ideation. Pt will follow up with Psychiatrist: Dr. Lionel Stanley Address: [address], [place] [address] on Sunday10/10/19 telephonically at 10:00am. SW faxed clinical information to . Pt will also follow up with Director Of Instrumental Music: [facility] Address: [address] [place] [address] . The multidisciplinary exit care form was done, printed, signed, and given to the patient.
--- NOTE | 2019-10-15 13:56 | NUR ---
GPS/RN-NOTES PATIENT WAS DISCHARGED BY DR. VALDOVINOS TODAY, NIGEL LUTHER MADE AWARE OF THE DISCHARGE AND AGREED. PATIENT WAS DISCHARGE TO HOME. ALL DISCHARGE MEDICATIONS WAS REVIEW WITH THE PATIENT WITH UNDERSTANDING. RX WAS GIVEN TO THE PATIENT. PATIENT STRONGLY REFUSED TO SIGN DISCHARGE PAPERS AND REFUSED FULL BODY ASSESSMENT PRIOR TO DISCHARGE. PATIENT DID NOT VERBALIZE SI/HI,DENIES VISUAL/AUDITORY HALLUCINATIONS AT THE TIME OF DISCHARGE. PATIENT LEFT THE UNIT ALERT ORIENTED X3,NO ACUTE DISTRESS NOTED,LEFT WITH ALL BELONGINGS INCLUDING 1 CELLPHONE AND OTHER BELONGINGS. PATIENT WAS ESCORTED IN THE LOBBY FOR SAFETY. PRINCIPAL DEVELOPER BY SON TERE VIA PRIVATE CAR.
== END 2019-10-15 13:55 | disposition home or self-care (01) | DRG 885 ==
LOC: ER 09:08 → GPS 15:54
PROVIDERS: ADMIT Psychiatry & Neurology Psychosomatic Medicine; ATTEND Nurse Practitioner Acute Care
DX: F31.9 Bipolar disorder, unspecified (principal); N39.0 Urinary tract infection, site not specified; E03.9 Hypothyroidism, unspecified; F29 Unspecified psychosis not due to a substance or known physiological condition; E80.6 Other disorders of bilirubin metabolism; F43.10 Post-traumatic stress disorder, unspecified; F60.9 Personality disorder, unspecified
CPT/HCPCS: 36415; 80048-TC; 80053-TC; 80061-TC; 80076-TC; 80164-TC; 80305; 81000-TC; 82962-TC; 84443-TC; 85025-TC; 87081-TC; 87086-TC; G0480

== ENCOUNTER 2021-07-31 22:34 | Emergency (ER) | payer OTHER ==
[~2021-07-31] VITALS: Ht 160 cm; Wt 90.7 kg
[~2021-07-31 22:34] MED LIST changes: -ARIP30TA3 PO; +CITA20TA16 PO; +LACT1CAP71 PO; -LAMO200T10 PO; +LEVO125T8 PO; -LEVO150T8 PO; -LITH600C PO; -PROP60CA2 PO; -TOPI100T38 PO; -TRIH2TAB3 PO; +VITA1TAB56 PO
--- NOTE | 2021-07-31 23:00 | NUR ---
BIBRA 99 FOR C/O WEAKNESS X 1 DAY. PATIENT ALERT AND ORIENTED X3. AMBULATORY WITH NON LABORED BREATHING. PLACED IN BED 10 ON MONITOR AND POX.
--- NOTE | 2021-07-31 23:56 | NUR ---
IV LINE ESTABLISHED 20G AT [facility]. BLOOD DRAWN AND SENT TO LAB. URINE SENT TO LAB.
[2021-08-01] MEDS ORDERED: IV NS 0.9% 1,000 ML BAG IV ONE
[2021-08-01 00:03] LABS: BASOPHILS # (AUTO) 0.1 K/uL (0.0-0.2); BASOPHILS % (AUTO) 0.5 % (0.0-2.0); EOSINOPHILS % (AUTO) 0.7 % (0.0-6.0); HEMATOCRIT 44 % (33-45); HEMOGLOBIN 14.5 g/dL (11.5-14.8); LYMPHOCYTES # (AUTO) 2.1 K/uL (0.8-4.8); LYMPHOCYTES % (AUTO) 17.8 % (20.0-44.0); MEAN CORPUSCULAR HGB CONC 33 g/dl (31.0-36.0); MEAN CORPUSCULAR VOLUME 84 fL (82-100); MONOCYTES # (AUTO) 0.7 K/uL (0.1-1.30); MONOCYTES % (AUTO) 6.2 % (2.0-12.0); NEUTROPHILS # (AUTO) 8.9 K/uL (1.8-8.9); NEUTROPHILS % (AUTO) 74.8 % (43.0-81.0); PLATELET COUNT (AUTO) 292 K/uL (150-450); RED BLOOD CELL COUNT(AUTO) 5.25 MIL/uL (4.0-5.2); WHITE BLOOD COUNT (AUTO) 11.9 K/uL (4.3-11.0)
[2021-08-01 00:08] LABS: BILIRUBIN,URINE NEGATIVE (NEGATIVE); COLOR,URINE YELLOW (YELLOW); LEUKOCYTE ESTERASE ,URINE SMALL (NEGATIVE); NITRITE, URINE NEGATIVE (NEGATIVE); PROTEIN,URINE NEGATIVE (NEGATIVE); UGLUCOSE NEGATIVE (NEGATIVE); UROBILINOGEN,URINE 0.2 EU/dL (0.2)
--- NOTE | 2021-08-01 00:24 | NUR ---
PT TAKEN TO AND RETURNED FROM CT VIA MARQUITA
[2021-08-01 00:39] LABS: CALCIUM, SERUM 9.3 mg/dL (8.5-10.1); CARBON DIOXIDE 29 mmol/L (21-32); CHLORIDE 102 mmol/L (98-107); CREATININE 0.8 mg/dL (0.6-1.3); GLUCOSE 126 mg/dL (74-106); POTASSIUM 3.6 mmol/L (3.5-5.1); SODIUM SERUM 139 mmol/L (136-145); UREA NITROGEN, BLOOD 16 mg/dL (7-18)
[2021-08-01 00:53] LABS: ALANINE AMINOTRANSFERASE 34 U/L (12-78); ALBUMIN 4.4 g/dL (3.4-5.0); ALKALINE PHOSPHATASE 102 U/L (46-116); ASPARTATE AMINOTRANSFERASE 24 U/L (15-37); BILIRUBIN,DIRECT 0.2 mg/dL (0.0-0.2); BILIRUBIN,TOTAL 1.1 mg/dL (0.2-1.0); TOTAL PROTEIN, SERUM 7.9 g/dL (6.4-8.2)
[2021-08-01 01:00] LABS: BACTERIA,URINE Many /HPF (None Seen); MUCUS,URINE Few /LPF (None Seen); SQUAMOUS EPITHELIAL CELL,UR Many /HPF (None Seen); WBC,URINE 21-50 /HPF (0-3)
[2021-08-01] MEDS ORDERED: NITR100C6 PO (02:22)
[2021-08-01] MEDS ORDERED: NITROFURANTOIN/MONOHYDRATE MACROCRYSTALS 100 MG CAPSULE ONE (02:26)
[2021-08-01] MEDS ORDERED: NITROFURANTOIN/MONOHYDRATE MACROCRYSTALS 100 MG CAPSULE PO ONE (02:30)
--- NOTE | 2021-08-01 02:34 | NUR ---
IV removed. Catheter intact and site benign. Pressure and 4x4 applied to site. No bleeding noted.Patient discharged to home in stable condition. Rx and Written and verbal after care instructions given. Patient verbalizes understanding of instruction.
[2021-08-01 02:57] VITALS: BP 148/78
== END 2021-08-01 02:36 | disposition home or self-care (01) ==
LOC: ER 22:34
DX: R53.1 Weakness (principal); N39.0 Urinary tract infection, site not specified; R42 Dizziness and giddiness; E03.9 Hypothyroidism, unspecified; Z79.899 Other long term (current) drug therapy
CPT/HCPCS: 36415; 70450; 71045; 80048; 80076; 80307; 81001; 84484; 85025; 85730; 87086; 93005; 96360; 99285; J7030

== ENCOUNTER 2022-09-27 16:56 | Emergency (ER) | payer OTHER ==
[~2022-09-27] VITALS: Ht 165.1 cm; Wt 85.7 kg
[~2022-09-27 16:56] MED LIST changes: +NITR100C6 PO
--- NOTE | 2022-09-27 17:24 | NUR ---
Floyd AOx 2-3, staes she does not want to commit suicide but "I want to kill everybody". PAtietn with no signs of distress. Discussed plan of care, patient verbalized understanding. All safety precautions taken.
[2022-09-27] MEDS ORDERED: diphenhydrAMINE HCL 50 MG/ML VIAL IV ONE (17:30)
[2022-09-27] MEDS ORDERED: IV NS 0.9% 1,000 ML BAG IV ONE (17:30)
[2022-09-27 17:31] LABS: BASOPHILS # (AUTO) 0.1 K/uL (0.0-0.2); BASOPHILS % (AUTO) 0.5 % (0.0-2.0); EOSINOPHILS % (AUTO) 0.5 % (0.0-6.0); HEMATOCRIT 51 % (33-45); HEMOGLOBIN 16.7 g/dL (11.5-14.8); LYMPHOCYTES # (AUTO) 3.7 K/uL (0.8-4.8); LYMPHOCYTES % (AUTO) 26.8 % (20.0-44.0); MEAN CORPUSCULAR HGB CONC 33 g/dl (31.0-36.0); MEAN CORPUSCULAR VOLUME 87 fL (82-100); MONOCYTES # (AUTO) 0.8 K/uL (0.1-1.30); MONOCYTES % (AUTO) 6.1 % (2.0-12.0); NEUTROPHILS % (AUTO) 66.1 % (43.0-81.0); PLATELET COUNT (AUTO) 297 K/uL (150-450); RED BLOOD CELL COUNT(AUTO) 5.89 MIL/uL (4.0-5.2); WHITE BLOOD COUNT (AUTO) 13.7 K/uL (4.3-11.0)
[2022-09-27] MEDS ORDERED: diphenhydrAMINE HCL 50 MG/ML VIAL ONE (17:34)
[2022-09-27 17:50] LABS: CALCIUM, SERUM 10.5 mg/dL (8.5-10.1); CARBON DIOXIDE 22 mmol/L (21-32); CHLORIDE 101 mmol/L (98-107); CREATININE 0.9 mg/dL (0.6-1.3); GLUCOSE 159 mg/dL (74-106); POTASSIUM 3.7 mmol/L (3.5-5.1); SODIUM SERUM 141 mmol/L (136-145); UREA NITROGEN, BLOOD 15 mg/dL (7-18)
[2022-09-27 17:59] LABS: ALANINE AMINOTRANSFERASE 43 U/L (12-78); ALBUMIN 4.5 g/dL (3.4-5.0); ALKALINE PHOSPHATASE 122 U/L (46-116); ASPARTATE AMINOTRANSFERASE 31 U/L (15-37); BILIRUBIN,DIRECT 0.3 mg/dL (0.0-0.2); BILIRUBIN,TOTAL 1.8 mg/dL (0.2-1.0); TOTAL PROTEIN, SERUM 8.2 g/dL (6.4-8.2)
[2022-09-27 18:02] LABS: ALCOHOL, BLOOD < 3 mg/dL (0-0)
[2022-09-27 18:37] LABS: THYROID STIMULATING HORMONE 0.654 uIU/mL (0.358-3.74)
--- NOTE | 2022-09-27 19:10 | NUR ---
Urine collected sent to lab
[2022-09-27 19:23] LABS: BILIRUBIN,URINE NEGATIVE (NEGATIVE); COLOR,URINE YELLOW (YELLOW); LEUKOCYTE ESTERASE ,URINE NEGATIVE (NEGATIVE); NITRITE, URINE NEGATIVE (NEGATIVE); PROTEIN,URINE NEGATIVE (NEGATIVE); UGLUCOSE NEGATIVE (NEGATIVE)
[2022-09-27] MEDS ORDERED: IV NS 0.9% 1,000 ML IV ONE (19:30)
[2022-09-27] MEDS ORDERED: BENZ1TAB7 PO (19:45)
--- NOTE | 2022-09-27 19:59 | NUR ---
Patient discharged to home in stable condition. Written and verbal after care instructions given. Patient verbalizes understanding of instruction. IV removed. Catheter intact and site benign. Pressure and 4x4 applied to site. No bleeding noted.
[2022-09-27 20:01] VITALS: BP 161/75
== END 2022-09-27 20:07 | disposition home or self-care (01) ==
LOC: ER 17:01
DX: R25.8 Other abnormal involuntary movements (principal); F31.9 Bipolar disorder, unspecified; E03.9 Hypothyroidism, unspecified; Z79.899 Other long term (current) drug therapy
CPT/HCPCS: 99285; 96374; 96361; 93005; 70450; 85025; 80048; 80076; 81003; 36415; 84443; 84484; 80143; 80320; 80307; J1200; J7030; G0480